=== PATIENT | male | born 1970 | race Caucasian/White ===

== ENCOUNTER 2017-09-29 20:07 | Emergency (ER) | payer OTHER ==
[~2017-09-29] VITALS: Ht 167.6 cm; Wt 117.0 kg
[2017-09-29 20:10] VITALS: Ht 167.6 cm; Wt 117.0 kg
[2017-09-29] MEDS ORDERED: SODIUM CHLORIDE 0.9% 1000ML 1,000 ML IV STA (20:42)
[2017-09-29] MEDS ORDERED: ACETAMINOPHEN 500 MG TAB PO STA (20:42)
[2017-09-29 21:19] LABS: BASO % 0.1 %; BASO ABS # 0.01 K/uL (0-0.2); EOS % 0.7 %; EOS ABS # 0.05 K/uL (0-0.5); HEMATOCRIT 42.4 % (42-52); HEMOGLOBIN 15.1 g/dL (14.0-18.0); IG# 0.02 K/uL (0.00-0.02); LYMPH % 13.7 %; MEAN CELL VOLUME 87.2 fL (80-100); MEAN CORPUSCULAR HEMOGLOBIN 31.1 pg (25-34); MEAN CORPUSCULAR HGB CONC 35.6 g/dl (32-36); MEAN PLATELET VOLUME 10.2 fL (7.4-10.4); MONO % 12.6 %; MONO ABS # 0.92 K/uL (0.11-0.59); NEUT % 72.6 %; NEUT ABS # 5.32 K/uL (1.4-6.5); PLATELET COUNT 181 K/uL (130-400); RED CELL DISTRIBUTION WIDTH CV 12.3 % (11.5-14.5); RED CELL DISTRIBUTION WIDTH SD 39.6 fL (36.4-46.3); WHITE BLOOD COUNT 7.32 K/uL (4.8-10.8)
[2017-09-29 21:37] LABS: ALBUMIN 3.6 gm/dl (3.4-5.0); CALCIUM 8.8 mg/dl (8.5-10.1); CREATININE 1.08 mg/dl (0.60-1.40); POTASSIUM 3.6 mmol/L (3.5-5.1)
[2017-09-29 21:40] LABS: TOTAL PROTEIN 7.4 gm/dl (6.4-8.2)
[2017-09-29 21:43] LABS: INFLUENZA B ANTIGEN Neg for Influ B (NEG)
--- NOTE | 2017-09-29 22:12 | DIAGNOSTIC IMAGING REPORT ---
PA CHEST RADIOGRAPH AND UPRIGHT AND SUPINE AP RADIOGRAPHS OF THE ABDOMEN CLINICAL HISTORY: fever, cough, diarrhea COMPARISON STUDY: Chest radiograph July 16, 2016. FINDINGS: Mild elevation of the right hemidiaphragm is unchanged. A BB-like density projects over the right chest. This is unchanged. Cardiomediastinal was normal. Pulmonary vascularity is normal. There is no consolidation to suggest pneumonia. There is no pneumothorax or pleural effusion. No free air is present. The bowel gas pattern is normal. IMPRESSION: 1. No free air or evidence of bowel obstruction. 2. No acute cardiopulmonary findings. Electronically signed by: Jefferson Gold M.D. 09/29/2017 10:10 PM Dictated Date/Time: 09/29/2017 10:09 PM
[2017-09-29] MEDS ORDERED: KETOROLAC TROMETHAMINE 30 MG/ML VIAL IV STA (22:22)
[2017-09-29 22:24] VITALS: BP 124/64; PULSE 89; TEMP 37.2; O2SAT 94
--- NOTE | 2017-09-29 22:25 | EMERGENCY ROOM VISIT NOTE ---
History Report prepared by José: Leesa Patel Under the Supervision of: Valencia HooverO. First contact with patient: 20:19 Chief Complaint: FLU LIKE SX Stated Complaint: FLU LIKE SX History of Present Illness The patient is a 47 year old male who presents to the Emergency Room with complaints of worsening flu like symptoms starting yesterday. The patient states that his daughter had a fever and was sick over the weekend. He states that yesterday he started a fever and dry heaving. The notes that the patient had a fever of 102 last she checked. He states that he went to [place] before coming in and since he has been foggy when he wakes up, they sent him here. He notes that he slept all day today. The patient complains of body aches, nasal congestion, sore throat, cough, dizziness, lightheadedness, loss of appetite, and diarrhea. He notes that he has had two episodes of diarrhea. The patient denies rashes, productive cough, recent travel, and bloating. Source of History: patient, spouse/significant other Onset: yesterday Position: other (global) Quality: other (flu-like) Timing: worsening Associated Symptoms: + fevers, + sorethroat, + cough, + diarrhea, No rash Note: The patient complains of dry heaving, being foggy, body aches, nasal congestion , dizziness, lightheadedness, and loss of appetite. The patient denies a productive cough and bloating. Review of Systems See HPI for pertinent positives & negatives. A total of 10 systems reviewed and were otherwise negative. Family History Diabetes mellitus FH: heart disease FHx: cancer FHx: gallbladder disease Hypertension Kidney disease Kidney stones Social History Smoking Status: Never Smoker Alcohol Use: occasionally Drug Use: none Marital Status: single Occupation Status: employed Current/Historical Medications No Active Prescriptions or Reported Meds Allergies Coded Allergies: NO KNOWN DRUG ALLERGIES (Verified Allergy, Unknown, N, 09/02/16) Physical Exam Vital Signs Date Time Temp Pulse Resp B/P (MAP) Pulse Ox O2 Delivery O2 Flow Rate FiO2 09/29/17 22:24 37.2 89 18 124/64 94 Room Air 09/29/17 20:10 39.4 108 22 150/100 95 Room Air Physical Exam GENERAL: alert, well appearing, well nourished, no distress, non-toxic EYE EXAM: normal conjunctiva, PERRL and EOM's grossly intact OROPHARYNX: no exudate, no erythema, lips, buccal mucosa, and tongue normal and mucous membranes are moist NECK: supple, no nuchal rigidity, no adenopathy, non-tender LUNGS: Clear to auscultation. Normal chest wall mechanics HEART: no murmurs, S1 normal and S2 normal ABDOMEN: abdomen soft, non-tender, normo-active bowel sounds, no masses, no rebound or guarding. BACK: Back is symmetrical on inspection and there is no deformity, no midline tenderness, no CVA tenderness. SKIN: no rashes and no bruising UPPER EXTREMITIES: upper extremities are grossly normal. LOWER EXTREMITIES: No pitting edema. NEURO EXAM: Normal sensorium, cranial nerves II-XII grossly intact, normal speech, no gross weakness of arms, no gross weakness of legs. Medical Decision & Procedures ER Provider Diagnostic Interpretation: Radiology results have been interpreted by the radiologist and reviewed by me. PA CHEST RADIOGRAPH AND UPRIGHT AND SUPINE AP RADIOGRAPHS OF THE ABDOMEN CLINICAL HISTORY: fever, cough, diarrhea COMPARISON STUDY: Chest radiograph July 16, 2016. FINDINGS: Mild elevation of the right hemidiaphragm is unchanged. A BB-like density projects over the right chest. This is unchanged. Cardiomediastinal was normal. Pulmonary vascularity is normal. There is no consolidation to suggest pneumonia. There is no pneumothorax or pleural effusion. No free air is present. The bowel gas pattern is normal. IMPRESSION: 1. No free air or evidence of bowel obstruction. 2. No acute cardiopulmonary findings. Electronically signed by: Jefferson Gold M.D. 09/29/2017 10:10 PM Dictated Date/Time: 09/29/2017 10:09 PM Laboratory Results 09/29/17 21:00 Red Blood Count 4.86, Mean Corpuscular Volume 87.2, Mean Corpuscular Hemoglobin 31.1, Mean Corpuscular Hemoglobin Concent 35.6, Mean Platelet Volume 10.2, Neutrophils (%) (Auto) 72.6, Lymphocytes (%) (Auto) 13.7, Monocytes (%) (Auto) 12.6, Eosinophils (%) (Auto) 0.7, Basophils (%) (Auto) 0.1, Neutrophils # (Auto ) 5.32, Lymphocytes # (Auto) 1.00, Monocytes # (Auto) 0.92, Eosinophils # (Auto ) 0.05, Basophils # (Auto) 0.01 09/29/17 21:00 Test 09/29/17 20:55 09/29/17 21:00 Influenza Type A Antigen Neg for Influ A (NEG) Influenza Type B Antigen Neg for Influ B (NEG) White Blood Count 7.32 K/uL (4.8-10.8) Red Blood Count 4.86 M/uL (4.7-6.1) Hemoglobin 15.1 g/dL (14.0-18.0) Hematocrit 42.4 % (42-52) Mean Corpuscular Volume 87.2 fL (80-100) Mean Corpuscular Hemoglobin 31.1 pg (25-34) Mean Corpuscular Hemoglobin Concent 35.6 g/dl (32-36) Platelet Count 181 K/uL (130-400) Mean Platelet Volume 10.2 fL (7.4-10.4) Neutrophils (%) (Auto) 72.6 % Lymphocytes (%) (Auto) 13.7 % Monocytes (%) (Auto) 12.6 % Eosinophils (%) (Auto) 0.7 % Basophils (%) (Auto) 0.1 % Neutrophils # (Auto) 5.32 K/uL (1.4-6.5) Lymphocytes # (Auto) 1.00 K/uL (1.2-3.4) Monocytes # (Auto) 0.92 K/uL (0.11-0.59) Eosinophils # (Auto) 0.05 K/uL (0-0.5) Basophils # (Auto) 0.01 K/uL (0-0.2) RDW Standard Deviation 39.6 fL (36.4-46.3) RDW Coefficient of Variation 12.3 % (11.5-14.5) Immature Granulocyte % (Auto) 0.3 % Immature Granulocyte # (Auto) 0.02 K/uL (0.00-0.02) Anion Gap 8.0 mmol/L (3-11) Est Creatinine Clear Calc Drug Dose 103.9 ml/min Estimated GFR () 95.6 Estimated GFR (Non- 82.5 BUN/Creatinine Ratio 11.0 (10-20) Calcium Level 8.8 mg/dl (8.5-10.1) Magnesium Level 1.7 mg/dl (1.8-2.4) Total Bilirubin 0.5 mg/dl (0.2-1) Aspartate Amino Transf (AST/SGOT) 49 U/L (15-37) Alanine Aminotransferase (ALT/SGPT) 62 U/L (12-78) Alkaline Phosphatase 82 U/L (45-117) Total Protein 7.4 gm/dl (6.4-8.2) Albumin 3.6 gm/dl (3.4-5.0) Globulin 3.7 gm/dl (2.5-4.0) Albumin/Globulin Ratio 1.0 (0.9-2) Laboratory results per my review. Medications Administered Medications (Trade) Dose Ordered Sig/Brittany Route Start Time Stop Time Status Last Admin Dose Admin Sodium Chloride 1,000 ml @ 999 mls/hr Q1H1M STAT IV 09/29/17 20:42 09/29/17 21:42 DC 09/29/17 21:00 999 MLS/HR Acetaminophen (Tylenol Tab) 1,000 mg NOW STAT PO 09/29/17 20:42 09/29/17 20:47 DC 09/29/17 21:00 1,000 MG ECG Indication: nausea Rate (beats per minute): 99 Rhythm: sinus rhythm Findings: no acute ischemic change, no ectopy, other (normal axis, normal intervals) ED Course 2034: The patient was evaluated in room B7. A complete history and physical exam was performed. 2041: Ordered Tylenol Tab 1000 mg PO, NSS 1000 ml @ 999 mls/hr IV. 2214: Upon reevaluation, the patient is feeling better. I discussed the findings and the treatment plan with the patient. He verbalizes agreement and understanding. The patient was discharged home. 2215: I interpreted the patient's EKG at this time. 2: Ordered Toradol Inj 30 mg IV. Medical Decision The patient is a 47 year old male who presents to the Emergency Room with complaints of worsening flu like symptoms starting yesterday. Differential diagnosis: Etiologies such as viral syndrome, otitis, pharyngitis, pneumonia, influenza, meningitis, urinary tract infection, sepsis, bacteremia, metabolic, infection, hypo/hyperglycemia, electrolyte abnormalities, cardiac sources, intracerebral event, toxicologic, neurologic, as well as others were entertained. Medication Reconcilliation Current Medication List: was personally reviewed by me Blood Pressure Screening Patient's blood pressure: Elevated blood pressure Blood pressure disposition: Elevated BP felt to be situational Impression Primary Impression: Influenza-like symptoms Scribe Attestation The scribe's documentation has been prepared under my direction and personally reviewed by me in its entirety. I confirm that the note above accurately reflects all work, treatment, procedures, and medical decision making performed by me. Departure Information Dispostion Home / Self-Care Prescriptions No Active Prescriptions or Reported Meds Referrals Andrew Marshall M.D. (PCP) Forms HOME CARE DOCUMENTATION FORM, IMPORTANT VISIT INFORMATION Patient Instructions My [facility] Additional Instructions Please drink plenty of fluids. You may not have a normal appetite per several days, this is normal with a viral syndrome. Please use Tylenol and ibuprofen as directed on the bottle for your fevers and pain. If you have any other worsening symptoms or new concerns, please return the emergency room.
== END 2017-09-29 22:30 | disposition home or self-care (01) ==
LOC: C.EDB 20:10
DX: R50.9 Fever, unspecified (principal); R52 Pain, unspecified; R09.81 Nasal congestion; J02.9 Acute pharyngitis, unspecified; R05 Cough; R42 Dizziness and giddiness; R19.7 Diarrhea, unspecified; Z83.3 Family history of diabetes mellitus; Z82.49 Family history of ischemic heart disease and other diseases of the circulatory system; Z80.9 Family history of malignant neoplasm, unspecified; Z83.79 Family history of other diseases of the digestive system; Z84.1 Family history of disorders of kidney and ureter